=== PATIENT | male | born 1945 | race Caucasian/White ===

== ENCOUNTER → 2017-09-02 | Outpatient (CLI) | payer OTHER ==
[2017-09-02 08:59] LABS: BASO % 0.6 %; BASO ABS # 0.03 K/uL (0-0.2); EOS % 3.2 %; HEMATOCRIT 34.2 % (42-52); IG% 0.2 %; LYMPH % 23.2 %; LYMPH ABS # 1.17 K/uL (1.2-3.4); MEAN CELL VOLUME 79.5 fL (80-100); MEAN CORPUSCULAR HEMOGLOBIN 26.5 pg (25-34); MEAN CORPUSCULAR HGB CONC 33.3 g/dl (32-36); MONO % 17.2 %; NEUT % 55.6 %; PLATELET COUNT 227 K/uL (130-400); WHITE BLOOD COUNT 5.05 K/uL (4.8-10.8)
[2017-09-02 09:13] LABS: ALT/SGPT 21 U/L (12-78); BLOOD UREA NITROGEN 12 mg/dl (7-18); BUN/CREATININE RATIO 11.2 (10-20); CALCIUM 8.8 mg/dl (8.5-10.1); CARBON DIOXIDE 25 mmol/L (21-32); CHLORIDE 110 mmol/L (98-107); CREATININE 1.08 mg/dl (0.60-1.40); GLUCOSE 91 mg/dl (70-99); SODIUM 140 mmol/L (136-145)
[2017-09-02 09:15] LABS: ALB/GLOB RATIO 0.9 (0.9-2); ALKALINE PHOSPHATASE 85 U/L (45-117); AST/SGOT 23 U/L (15-37)
[2017-09-02 09:28] LABS: ANISOCYTOSIS PRESENT; COMPLETE YES
== END | disposition home or self-care (01) ==
LOC: C.LAB 16:48
PROVIDERS: ATTEND Internal Medicine Hematology & Oncology
DX: C18.7 Malignant neoplasm of sigmoid colon (principal)

== ENCOUNTER → 2017-09-07 | Outpatient (CLI) | payer OTHER ==
[~2017-09-07] MED LIST: GADAVIST IV PRN
--- NOTE | 2017-09-07 08:07 | DIAGNOSTIC IMAGING REPORT ---
ORBIT RADIOGRAPHS 3 VIEWS HISTORY: pre-MRI screening. COMPARISON: None. FINDINGS: There are no radiopaque foreign bodies identified within the orbits. IMPRESSION: No radiopaque foreign bodies identified within the orbits. Electronically signed by: Ezequiel Ernandez M.D. 09/07/2017 8:05 AM Dictated Date/Time: 09/07/2017 8:05 AM
--- NOTE | 2017-09-07 09:14 | DIAGNOSTIC IMAGING REPORT ---
MRI OF THE BRAIN COMBO CLINICAL HISTORY: Colon cancer. COMPARISON STUDY: No priors. TECHNIQUE: MRI of the brain was performed utilizing various T1 and T2-weighted sequences in the axial, sagittal, and coronal planes. Contrast-enhanced sequences were acquired following the administration of 7.5 cc of Gadavist. The examination is modestly degraded by motion artifact. FINDINGS: Brain parenchyma: There are age-related involutional changes noting mild subcortical and periventricular microangiopathic disease. There is no hemorrhage or mass effect. There is no restricted diffusion to suggest acute ischemia. No enhancing mass lesion is identified on the postcontrast images. Ellison-white matter differentiation is preserved. No extra-axial fluid collection is seen. The cerebellar tonsils are normal in configuration. Ventricles, sulci, and cisterns: Prominent secondary to involutional change. Pituitary and sella: Unremarkable. Intracranial vasculature: Normal flow voids are maintained at the skull base. Orbits: The bony orbits are grossly intact. Orbital contents are normal in appearance. Sinuses and mastoids: Trace fluid is seen in the left maxillary antrum. The paranasal sinuses and mastoid air cells are otherwise clear. Calvarium: Unremarkable. Cervical cord: Partially visualized cervical spinal cord is normal in morphology and signal intensity. IMPRESSION: No acute intracranial abnormality. Specifically, there is no evidence of intracranial metastatic disease. Electronically signed by: Leon Gastelum M.D. 09/07/2017 9:13 AM Dictated Date/Time: 09/07/2017 8:52 AM
== END | disposition home or self-care (01) ==
LOC: C.MRI 07:26
PROVIDERS: ATTEND Nurse Practitioner Family
DX: C18.7 Malignant neoplasm of sigmoid colon (principal)

== ENCOUNTER → 2017-10-31 | Outpatient (CLI) | payer OTHER ==
[~2017-10-31] MED LIST changes: -GADAVIST IV PRN; +OPTIRAY 320 IV PRN
--- NOTE | 2017-10-31 15:26 | DIAGNOSTIC IMAGING REPORT ---
CT THORACIC SPINE WITH CT DOSE: CLINICAL HISTORY: Colon carcinoma. Evaluate for metastatic disease. Neuropathy. Bilateral arm and hand weakness. TECHNIQUE: The patient was scanned following administration of 118 cc of Optiray 320. A dose lowering technique was utilized adhering to the principles of ALARA. COMPARISON STUDY: None. FINDINGS: No paraspinal masses are visualized. There is no pathologic mediastinal lymphadenopathy by size criteria. There is pulmonary emphysema. Multiple right renal hypodensities likely represent cysts. Left kidney is not visualized. There are no acute fractures. There are no subluxations. No destructive lesions are evident. There are mild multilevel degenerative changes. No intraspinal lesions are visualized, however CT scanning has a limited sensitivity for the visualization of intraspinal abnormalities. CT scanning cannot be utilized to assess cord pathology. IMPRESSION: 1. No fractures or subluxations identified 2. No destructive lesions are evident Electronically signed by: Ezequiel Ernandez M.D. 10/31/2017 3:25 PM Dictated Date/Time: 10/31/2017 3:19 PM
--- NOTE | 2017-10-31 15:33 | DIAGNOSTIC IMAGING REPORT ---
CERVICAL SPINE WITH CLINICAL HISTORY: 72 years-old Male presenting with CANCER RELATED. TECHNIQUE: Multidetector CT of the cervical spine was performed after the administration of intravenous contrast. IV contrast: 118 mL of Optiray 320. A dose lowering technique was used consistent with the principles of ALARA (as low as reasonably achievable). COMPARISON: None. CT DOSE (mGy.cm): The estimated cumulative dose is 1034.94 mGy.cm. FINDINGS: [employer] topogram: Median sternotomy wires noted. Screening of normal cervical lordosis likely positional. Mild vertebral body height loss of C4-C6. No convincing evidence of acute fracture or subluxation. Multilevel degenerative changes with disc osteophyte complexes noted at C4-5 through C6-7. Mild multilevel osseous neural foraminal narrowing secondary to uncovertebral hypertrophy and facet arthropathy. No gross evidence of osseous spinal canal narrowing. No gross evidence of abnormal enhancement of the cervical spinal cord. No paraspinal abnormal soft tissue. Expected vascular opacification. Apical emphysema. IMPRESSION: Multilevel degenerative changes no gross evidence of abnormal soft tissue to suggest metastatic disease within limitations of CT. Contrast-enhanced MR is better for evaluation of metastatic osseous involvement. Electronically signed by: Kannan Su M.D. 10/31/2017 3:32 PM Dictated Date/Time: 10/31/2017 3:10 PM
== END | disposition home or self-care (01) ==
LOC: C.CTS 14:42
PROVIDERS: ATTEND Internal Medicine Hematology & Oncology
DX: C18.7 Malignant neoplasm of sigmoid colon (principal)

== ENCOUNTER → 2018-06-27 | Outpatient (CLI) | payer OTHER ==
--- NOTE | 2018-06-27 14:22 | DIAGNOSTIC IMAGING REPORT ---
CT SCAN OF THE CHEST, ABDOMEN, AND PELVIS WITH IV CONTRAST CLINICAL HISTORY: Colon cancer. COMPARISON STUDY: MRI of the thoracic spine dated 10/31/2017. TECHNIQUE: Following the IV administration of 65 of Optiray 320, CT scan of the chest, abdomen, and pelvis was performed from the thoracic inlet to the proximal femora. Images are reviewed in the axial, sagittal, and coronal planes. IV contrast was administered without complication. A dose lowering technique was utilized adhering to the principles of ALARA. The examination is degraded by motion artifact. CT DOSE: 839.63 mGy.cm FINDINGS: CHEST: Thyroid: Imaged portions of the thyroid gland are normal in size and attenuation. Thoracic aorta: The thoracic aorta is normal in caliber and demonstrates standard 3-vessel arch anatomy. No dissection is seen. A right subclavian central venous infusion port is in place. Pulmonary vasculature: The pulmonary trunk is normal in caliber. There are no filling defects identified in the central pulmonary vessels to indicate pulmonary embolus. Note that this examination was not protocoled for evaluation of the pulmonary arteries. Heart: The patient is status post midline sternotomy. The heart is enlarged and without pericardial effusion. The coronary arteries are densely calcified. Lungs and pleural spaces: Evaluation of lung parenchyma is significantly degraded by motion artifact. Emphysema is observed. No airspace consolidation or pleural effusion is identified. Minimal secretions are noted in the trachea. Mediastinum: There are scattered subcentimeter mediastinal lymph nodes. These are not pathologically enlarged by size criteria. Inez: Clear. Axillae: There is no axillary lymphadenopathy. Bony thorax: The skeletal structures are osteopenic. No lytic or blastic lesions are identified. Degenerative changes noted in the thoracic spine. ABDOMEN AND PELVIS: Liver: The contrast-enhanced liver is normal in size, contour, and attenuation. There is no intrahepatic or ductal dilatation. The hepatic veins and portal veins are patent. Calcified granulomas noted in the right lobe. An 11 mm cyst is noted in the left lobe. Gallbladder: Unremarkable. Spleen: Normal in size and attenuation. Pancreas: Unremarkable. Adrenal glands: Unremarkable. Kidneys: The contrast enhanced right kidney demonstrates mild cortical atrophy and is without hydronephrosis. Scattered subcentimeter cortical hypodensities likely represent cysts but are too small for definitive characterization. Parapelvic cysts are observed. The right kidney enhances homogeneously. The left kidney is surgically absent. Abdominal vasculature: The abdominal aorta is normal in course and caliber noting moderate to advanced atherosclerotic calcification. Bowel: There are postoperative changes from sigmoid colon resection with colocolonic anastomosis. No bowel obstruction is identified. There is mild diverticulosis of the remaining colon without CT evidence of acute diverticulitis. Moderate colonic fecal retention is observed. The appendix is not identified and reported surgically absent. Peritoneum: There is no intraperitoneal free air or abdominal ascites. Lymphadenopathy: None. Pelvic viscera: The prostate gland is markedly enlarged and heterogeneous, measuring 7.7 cm in transverse diameter. There is median lobe hypertrophy. The bladder wall is thickened and trabeculated indicating chronic outlet obstruction. Skeletal structures: The skeletal structures are osteopenic. There is mild lumbar sacral spondylosis. Degenerative change is also seen in the sacroiliac joints. No lytic or blastic lesions are seen. IMPRESSION: 1. There is no evidence of metastatic disease in the chest, abdomen, or pelvis. 2. Cardiomegaly and emphysema. 3. No airspace consolidation or pleural effusion is identified. 4. The left kidney is surgically absent. 5. Marked prostatomegaly with evidence of chronic bladder outlet obstruction. 6. There are postoperative changes from sigmoid colon resection with colocolonic anastomosis. No bowel obstruction is seen. 7. Moderate colonic fecal retention. 8. Additional findings as above. Electronically signed by: Leon Gastelum M.D. 06/27/2018 2:21 PM Dictated Date/Time: 06/27/2018 1:43 PM
== END | disposition home or self-care (01) ==
LOC: C.CTS 11:07
PROVIDERS: ATTEND Internal Medicine Hematology & Oncology
DX: C18.7 Malignant neoplasm of sigmoid colon (principal); I51.7 Cardiomegaly; K59.00 Constipation, unspecified